=== PATIENT | female | born 1955 | race Caucasian/White ===

== ENCOUNTER 2021-03-07 06:49 | Day surgery (SDC) | payer MEDICARE ==
[~2021-03-07] VITALS: Ht 157.5 cm; Wt 61.7 kg
[2021-03-07] VITALS (18 sets, daily range): BP systolic 109–141; BP diastolic 37–95
[2021-03-07] MEDS ORDERED: albumin 25% 100mL bottle x 1 IV PRN (07:10)
[2021-03-07] MEDS ORDERED: normal saline 1000ml 1,000 ML IV SCH (07:10)
[2021-03-07] MEDS ORDERED: HYDR-3972 PO (07:52)
[2021-03-07 08:02] LABS: BASOPHILS # (AUTO) 0.1 X10'3 (0-0.2); BASOPHILS % (AUTO) 0.9 % (0-1); EOSINOPHILS % (AUTO) 0.3 % (0-6); HEMATOCRIT 39.1 % (35.0-45.0); HEMOGLOBIN 13.4 g/dl (12.0-16.0); LYMPHOCYTES # (AUTO) 1.2 X10'3 (1.1-4.8); MEAN CORPUSCULAR HGB CONC 34.3 g/dL (33.0-36.5); MEAN CORPUSCULAR VOLUME 84.6 FL (78-98); MEAN PLATELET VOLUME 7.8 FL (7.4-10.4); MONOCYTES # (AUTO) 0.7 X10'3 (0-0.9); MONOCYTES % (AUTO) 7.4 % (2-12); NEUTROPHILS # (AUTO) 7.9 X10'3 (1.8-7.7); NEUTROPHILS % (AUTO) 79.4 % (42-75); PLATELET COUNT 465 X10'3 (140-440); RED BLOOD COUNT 4.62 X10'6 (4.20-5.60); RED CELL DISTRIBUTION WIDTH 12.5 % (11.5-14.5); WHITE BLOOD COUNT 9.9 X10'3 (4.5-11.0)
[2021-03-07] MEDS ORDERED: midazolam 1 mg/ML 2ml injection ONE (08:51)
[2021-03-07] MEDS ORDERED: fentaNYL/PF 50MCG/1 ML 2ML syringe ONE (08:51)
[2021-03-07] MEDS ORDERED: sodium chloride 0.45% 1,000 ML IV SCH (09:00)
== END 2021-03-07 14:10 | disposition home or self-care (01) ==
LOC: SSTAY O 06:49
PROVIDERS: ATTEND Radiology Diagnostic Radiology
DX: R91.1 Solitary pulmonary nodule (principal); C34.31 Malignant neoplasm of lower lobe, right bronchus or lung; Z86.19 Personal history of other infectious and parasitic diseases; Z85.828 Personal history of other malignant neoplasm of skin; Z98.890 Other specified postprocedural states; Z79.899 Other long term (current) drug therapy; Z85.07 Personal history of malignant neoplasm of pancreas
CPT/HCPCS: 32408; 36415; 71045; 85025; 85610; 99152; 99153; J2250; J3010; 88305; 88341; 88342

== ENCOUNTER 2021-03-22 08:17 | Day surgery (SDC) | payer MEDICARE ==
[~2021-03-22] VITALS: Ht 157.5 cm; Wt 62.0 kg
[~2021-03-22 08:17] MED LIST: HYDR-3972 PO
[2021-03-22] MEDS ORDERED: MELA1TAB28 PO (08:39)
[2021-03-22] MEDS ORDERED: DIPH25CA83 PO (08:40)
[2021-03-22] MEDS ORDERED: normal saline 1000ml 1,000 ML IV PRN (08:50)
[2021-03-22 08:53] VITALS: BP 130/85
[2021-03-22] MEDS ORDERED: midazolam 1 mg/ML 2ml injection ONE (10:11)
[2021-03-22] MEDS ORDERED: heparin sodium, porcine/PF 100unit/ml 5ML syringe ONE (10:11)
[2021-03-22] MEDS ORDERED: fentaNYL/PF 50MCG/1 ML 2ML syringe ONE (10:11)
[2021-03-22] MEDS ORDERED: normal saline 1000ml 1,000 ML IV SCH (10:20)
[2021-03-22 11:11] VITALS: BP 136/44
[2021-03-22 11:30] VITALS: BP 123/76
[2021-03-22 11:45] VITALS: BP 118/69
== END 2021-03-22 12:05 | disposition home or self-care (01) ==
LOC: SSTAY O 08:17
PROVIDERS: ATTEND Radiology Diagnostic Radiology
DX: C25.0 Malignant neoplasm of head of pancreas (principal); Z79.899 Other long term (current) drug therapy
CPT/HCPCS: 36561; 76937; 77001; 99152; 99153; C1769; C1788; C1894; J1642; J2250; J3010; J7030